=== PATIENT | male | born 1950 | race Caucasian/White ===

== ENCOUNTER 2019-09-03 05:53 | Day surgery (SDC) | payer MEDICARE, OTHER ==
[2019-09-02 15:01] LABS: BASOPHILS # (AUTO) 0.1 X10'3 (0-0.2); BASOPHILS % (AUTO) 0.8 % (0-1); EOSINOPHILS # (AUTO) 0.1 X10'3 (0-0.9); EOSINOPHILS % (AUTO) 2.2 % (0-6); HEMATOCRIT 46.4 % (42.0-52.0); HEMOGLOBIN 15.8 g/dl (14.0-17.9); LYMPHOCYTES % (AUTO) 29.5 % (21-51); MEAN CORPUSCULAR HEMOGLOBIN 32.1 PG (27.0-31.0); MEAN CORPUSCULAR VOLUME 94.4 FL (78-98); MEAN PLATELET VOLUME 7.6 FL (7.4-10.4); MONOCYTES # (AUTO) 0.8 X10'3 (0-0.9); MONOCYTES % (AUTO) 12.2 % (2-12); NEUTROPHILS # (AUTO) 3.8 X10'3 (1.8-7.7); NEUTROPHILS % (AUTO) 55.3 % (42-75); PLATELET COUNT 218 X10'3 (140-440); RED BLOOD COUNT 4.92 X10'6 (4.70-6.10); RED CELL DISTRIBUTION WIDTH 12.9 % (11.5-14.5); WHITE BLOOD COUNT 6.8 X10'3 (4.5-11.0)
[2019-09-02 15:09] LABS: ALBUMIN 4.1 G/DL (3.4-5.0); ANION GAP 8 (8-16); BLOOD UREA NITROGEN 16 MG/DL (7-18); BUN/CREATININE RATIO 12.9 (5.4-32.0); CALCIUM 9.7 MG/DL (8.5-10.1); CHLORIDE 105 MMOL/L (99-107); CREATININE 1.24 MG/DL (0.60-1.10); GLUCOSE 93 MG/DL (70-104); POTASSIUM 3.9 MMOL/L (3.5-5.1); SODIUM 145 MMOL/L (135-145); TOTAL CARBON DIOXIDE 32.2 MMOL/L (24-32); eGFR 58 ML/MIN
[2019-09-02 15:12] LABS: PARTIAL THROMBOPLASTIN TIME 27 SECONDS (22-32)
[2019-09-03] VITALS (14 sets, daily range): BP systolic 115–167; BP diastolic 68–83
[~2019-09-03] VITALS: Ht 172.7 cm; Wt 79.0 kg
[~2019-09-03 05:53] MED LIST: ASPI-1009 PO; ATOR10TA87 PO; CARV-50 PO; HYDR12.522 PO; ISOS30TA PO; LOSA25TA96 PO
[2019-09-03] MEDS ORDERED: LORazepam 0.5 MG tablet PO PRN (06:10)
[2019-09-03] MEDS ORDERED: diphenhydrAMINE 25mg capsule PO PRN (06:10)
[2019-09-03] MEDS ORDERED: normal saline 1,000 ML IV SCH (06:10)
[2019-09-03] MEDS ORDERED: EVOL140S2 (06:35)
[2019-09-03] MEDS ORDERED: METO50TA7 PO (06:35)
[2019-09-03] MEDS ORDERED: Vitamin D3 PO (06:35)
[2019-09-03] MEDS ORDERED: midazolam 2 mg/2 ml injection ONE (07:26)
[2019-09-03] MEDS ORDERED: iohexol 350MG/ML 100ml bottle IV ONE ×2 (07:26→08:40)
[2019-09-03] MEDS ORDERED: nitroGLYCERIN-Tridil 50MG/D5W 250 ML IV ONE (07:26)
[2019-09-03] MEDS ORDERED: LIDOcaine 1% (10mg/ml)w/preservative injection 20ml MDV ONE (07:26)
[2019-09-03] MEDS ORDERED: fentaNYL/PF 50MCG/1 ML 2ML syringe ONE (07:26)
[2019-09-03] MEDS ORDERED: iohexol 350 MG/ML 50ML vial IV ONE ×3 (07:26→09:01)
[2019-09-03] MEDS ORDERED: heparin 1,000unit/ml 10ml vial 10 ML ONE (07:56)
[2019-09-03] MEDS ORDERED: heparin 25,000 UNIT/250ml bag 250 ML IV ONE (08:39)
[2019-09-03] MEDS ORDERED: clopidogrel 300mg tablet ONE ×2 (09:05→09:14)
[2019-09-03] MEDS ORDERED: heparin 25,000 UNIT/250ml bag 250 ML IV SCH (09:58)
[2019-09-03] MEDS ORDERED: heparin 10,000 units/1 ML INJ IV ONE (10:00)
[2019-09-03] MEDS ORDERED: heparin 10,000 units/1 ML INJ IV PRN (10:00)
[2019-09-03] MEDS ORDERED: aspirin 81mg tab.chew PO SCH (10:05)
[2019-09-03] MEDS ORDERED: cyclobenzaprine 10mg tablet PO PRN (10:05)
[2019-09-03] MEDS ORDERED: proCHLORperazine 10 MG/2 ml inj IV PRN (10:05)
[2019-09-03] MEDS ORDERED: HYDROcodone/acetaminophen 10/325mg tab PO PRN ×2 (10:05)
[2019-09-03] MEDS ORDERED: acetaminophen 325mg tablet PO PRN (10:05)
[2019-09-03] MEDS ORDERED: OXAZEpam 15mg capsule PO PRN (10:05)
[2019-09-03] MEDS ORDERED: magnesium hydroxide 30ml (MOM) UD suspension PO PRN (10:05)
--- NOTE | 2019-09-03 15:40 | NUR ---
Problems reprioritized. Patient report given, questions answered & plan of care reviewed with Elena MICHELLE.
[2019-09-03] MEDS ORDERED: docusate sod 100mg capsule PO SCH (20:00)
[2019-09-04] MEDS ORDERED: clopidogrel 75mg tablet PO SCH (08:00)
== END 2019-09-03 18:50 | disposition home or self-care (01) ==
LOC: SSTAY O 05:53
PROVIDERS: ATTEND Internal Medicine Cardiovascular Disease
DX: R94.39 Abnormal result of other cardiovascular function study (principal); I25.10 Atherosclerotic heart disease of native coronary artery without angina pectoris; I10 Essential (primary) hypertension; I25.82 Chronic total occlusion of coronary artery; Z95.1 Presence of aortocoronary bypass graft; Z79.01 Long term (current) use of anticoagulants; Z79.82 Long term (current) use of aspirin; Z79.899 Other long term (current) drug therapy; Z72.89 Other problems related to lifestyle; Z88.2 Allergy status to sulfonamides
CPT/HCPCS: 36415; 80048; 85025; 85347; 85610; 85730; 93005; 93459; 99152; 99153; C1725; C1769; C1874; C9604; J1644; J2001; J2250; J3010; J7030; J7040; Q0163; Q9967; A4620; A5120; A6258; A6449; C1751; C1760; J3490

== ENCOUNTER 2021-08-25 06:01 | Day surgery (SDC) | payer MEDICARE, OTHER ==
[2021-08-25] VITALS (13 sets, daily range): BP systolic 114–155; BP diastolic 63–89
[~2021-08-25] VITALS: Ht 172.7 cm; Wt 80.9 kg
[~2021-08-25 06:01] MED LIST changes: -ATOR10TA87 PO; -CARV-50 PO; +EVOL140S2; -LOSA25TA96 PO; +METO50TA7 PO; +Vitamin D3 PO
[2021-08-25] MEDS ORDERED: ATOR20TA66 PO (07:06)
[2021-08-25] MEDS ORDERED: METO-539 PO (07:06)
[2021-08-25] MEDS ORDERED: CLOP75TA33 PO (07:06)
[2021-08-25] MEDS ORDERED: CHOL500050 PO (07:06)
[2021-08-25] MEDS ORDERED: HYDR25TA5 PO (07:06)
[2021-08-25] MEDS ORDERED: ISOS60TA71 PO (07:06)
[2021-08-25] MEDS ORDERED: nitroGLYCERIN-Tridil 50MG/D5W 250 ML IV ONE (07:18)
[2021-08-25] MEDS ORDERED: iohexol 300mg/ml 100ml inj. ONE ×4 (07:18→09:46)
[2021-08-25] MEDS ORDERED: heparin 1,000unit/ml 10ml vial 10 ML ONE (07:19)
[2021-08-25] MEDS ORDERED: verapamil 2.5 mg/ml inj IV ONE (07:19)
[2021-08-25] MEDS ORDERED: fentaNYL/PF 50MCG/1 ML 2ML syringe ONE (07:19)
[2021-08-25] MEDS ORDERED: midazolam 1 mg/ML 2ml injection ONE (07:19)
[2021-08-25] MEDS ORDERED: LORazepam 0.5 MG tablet PO PRN (07:20)
[2021-08-25] MEDS ORDERED: normal saline 1,000 ML IV SCH (07:20)
[2021-08-25] MEDS ORDERED: diphenhydrAMINE 25mg capsule PO PRN (07:20)
[2021-08-25 07:21] LABS: APTT 30 SECONDS (22-32)
[2021-08-25 07:22] LABS: BASOPHILS % (AUTO) 0.7 % (0-1); EOSINOPHILS # (AUTO) 0.1 X10'3 (0-0.9); EOSINOPHILS % (AUTO) 2.4 % (0-6); HEMATOCRIT 45.6 % (42.0-52.0); HEMOGLOBIN 15.7 g/dl (14.0-17.9); LYMPHOCYTES # (AUTO) 1.9 X10'3 (1.1-4.8); LYMPHOCYTES % (AUTO) 36.1 % (21-51); MEAN CORPUSCULAR HEMOGLOBIN 32.4 PG (27.0-31.0); MEAN CORPUSCULAR HGB CONC 34.5 g/dL (33.0-36.5); MEAN CORPUSCULAR VOLUME 93.8 FL (78-98); MEAN PLATELET VOLUME 7.4 FL (7.4-10.4); MONOCYTES # (AUTO) 0.7 X10'3 (0-0.9); NEUTROPHILS # (AUTO) 2.5 X10'3 (1.8-7.7); NEUTROPHILS % (AUTO) 46.8 % (42-75); PLATELET COUNT 224 X10'3 (140-440); RED BLOOD COUNT 4.86 X10'6 (4.70-6.10); RED CELL DISTRIBUTION WIDTH 14.2 % (11.5-14.5); WHITE BLOOD COUNT 5.2 X10'3 (4.5-11.0)
[2021-08-25] MEDS ORDERED: LIDOcaine 1% 30ml preserv. free vial ONE (07:23)
[2021-08-25 07:38] LABS: ALBUMIN 3.8 G/DL (3.4-5.0); ANION GAP 10 (8-16); BLOOD UREA NITROGEN 17 MG/DL (7-18); BUN/CREATININE RATIO 15.5 (5.4-32.0); CALCIUM 9.1 MG/DL (8.5-10.1); CHLORIDE 105 MMOL/L (99-107); GLUCOSE 112 MG/DL (70-104); SODIUM 140 MMOL/L (135-145); TOTAL CARBON DIOXIDE 25.5 MMOL/L (24-32); eGFR 66 ML/MIN
[2021-08-25] MEDS ORDERED: heparin 25,000 UNIT/250ml bag 250 ML IV ONE (08:57)
[2021-08-25] MEDS ORDERED: clopidogrel 300mg tablet ONE (09:49)
[2021-08-25] MEDS ORDERED: clopidogrel 75mg tablet PO SCH (11:01)
[2021-08-25] MEDS ORDERED: nitroGLYCERIN 0.4mg SUBLingual tab SL PRN (11:05)
== END 2021-08-25 17:00 | disposition home or self-care (01) ==
LOC: SSTAY O 06:01
PROVIDERS: ATTEND Internal Medicine Cardiovascular Disease
DX: I25.810 Atherosclerosis of coronary artery bypass graft(s) without angina pectoris (principal); I10 Essential (primary) hypertension; E78.49 Other hyperlipidemia; Z95.5 Presence of coronary angioplasty implant and graft; Z79.01 Long term (current) use of anticoagulants; Z79.899 Other long term (current) drug therapy; Z88.2 Allergy status to sulfonamides
CPT/HCPCS: 36415; 76937; 80048; 85025; 85347; 85610; 85730; 93005; 93459; 99152; 99153; C1725; C1751; C1769; C1874; C1894; C9604; J1644; J2250; J3010; J3490; Q0163; Q9967; A4620; A5120; A6258

== ENCOUNTER 2021-08-31 06:05 | Day surgery (SDC) | payer MEDICARE, OTHER ==
[2021-08-31] VITALS (12 sets, daily range): BP systolic 116–160; BP diastolic 59–90
[~2021-08-31] VITALS: Ht 172.7 cm; Wt 79.6 kg
[~2021-08-31 06:05] MED LIST changes: +ATOR20TA66 PO; +CHOL500050 PO; +CLOP75TA33 PO; -EVOL140S2; -HYDR12.522 PO; +HYDR25TA5 PO; -ISOS30TA PO; +ISOS60TA71 PO; +METO-539 PO; -METO50TA7 PO; -Vitamin D3 PO
[2021-08-31] MEDS ORDERED: normal saline 1,000 ML IV SCH (06:35)
[2021-08-31] MEDS ORDERED: diphenhydrAMINE 25mg capsule PO PRN (06:35)
[2021-08-31] MEDS ORDERED: LORazepam 0.5 MG tablet PO PRN (06:35)
[2021-08-31 07:40] LABS: BASOPHILS % (AUTO) 0.7 % (0-1); EOSINOPHILS # (AUTO) 0.1 X10'3 (0-0.9); EOSINOPHILS % (AUTO) 2.5 % (0-6); HEMATOCRIT 44.1 % (42.0-52.0); HEMOGLOBIN 15.4 g/dl (14.0-17.9); LYMPHOCYTES # (AUTO) 1.9 X10'3 (1.1-4.8); LYMPHOCYTES % (AUTO) 36.8 % (21-51); MEAN CORPUSCULAR HEMOGLOBIN 32.6 PG (27.0-31.0); MEAN CORPUSCULAR VOLUME 93.2 FL (78-98); MONOCYTES # (AUTO) 0.6 X10'3 (0-0.9); MONOCYTES % (AUTO) 11.9 % (2-12); NEUTROPHILS # (AUTO) 2.5 X10'3 (1.8-7.7); NEUTROPHILS % (AUTO) 48.1 % (42-75); PLATELET COUNT 218 X10'3 (140-440); RED BLOOD COUNT 4.74 X10'6 (4.70-6.10); RED CELL DISTRIBUTION WIDTH 13.9 % (11.5-14.5); WHITE BLOOD COUNT 5.2 X10'3 (4.5-11.0)
[2021-08-31 07:49] LABS: APTT 29 SECONDS (22-32)
[2021-08-31 08:31] LABS: ANION GAP 6 (8-16); BLOOD UREA NITROGEN 14 MG/DL (7-18); CALCIUM 9.3 MG/DL (8.5-10.1); CHLORIDE 105 MMOL/L (99-107); GLUCOSE 109 MG/DL (70-104); POTASSIUM 3.8 MMOL/L (3.5-5.1); SODIUM 139 MMOL/L (135-145); TOTAL CARBON DIOXIDE 27.8 MMOL/L (24-32); eGFR 74 ML/MIN
[2021-08-31] MEDS ORDERED: heparin 1,000unit/ml 10ml vial 10 ML ONE (10:46)
[2021-08-31] MEDS ORDERED: midazolam 1 mg/ML 2ml injection ONE (10:46)
[2021-08-31] MEDS ORDERED: verapamil 2.5 mg/ml inj IV ONE (10:46)
[2021-08-31] MEDS ORDERED: fentaNYL/PF 50MCG/1 ML 2ML syringe ONE (10:46)
[2021-08-31] MEDS ORDERED: LIDOcaine 1% 30ml preserv. free vial ONE (10:46)
[2021-08-31] MEDS ORDERED: IOHEXOL 350 MG/ML INFUS..BTL 125ML IV ONE (10:46)
[2021-08-31] MEDS ORDERED: heparin 25,000 UNIT/250ml bag 250 ML IV ONE (10:46)
[2021-08-31] MEDS ORDERED: nitroGLYCERIN-Tridil 50MG/D5W 250 ML IV ONE (10:46)
[2021-08-31] MEDS ORDERED: clopidogrel 300mg tablet ONE (11:59)
[2021-08-31] MEDS ORDERED: normal saline 1000ml 1,000 ML IV SCH (13:00)
--- NOTE | 2021-08-31 15:19 | NUR ---
Spoke with patient and , they have a current RX for Plavix at home. Pt states he has a full bottle of Plavix and understands dose instructions.
== END 2021-08-31 17:55 | disposition home or self-care (01) ==
LOC: SSTAY O 06:05
PROVIDERS: ATTEND Internal Medicine Cardiovascular Disease
DX: I25.810 Atherosclerosis of coronary artery bypass graft(s) without angina pectoris (principal); I10 Essential (primary) hypertension; E78.49 Other hyperlipidemia; Z79.899 Other long term (current) drug therapy; Z79.01 Long term (current) use of anticoagulants; Z88.2 Allergy status to sulfonamides
CPT/HCPCS: 36415; 76937; 80048; 85025; 85347; 85610; 85730; 93005; 99152; 99153; C1725; C1751; C1769; C1874; C1894; C9604; J1644; J2250; J3010; J3490; J7030; Q0163; Q9967; A4620; A5120; A6258; A6402

== ENCOUNTER 2022-10-11 09:05 | Day surgery (SDC) | payer MEDICARE, OTHER ==
[2022-10-10 10:19] LABS: BASOPHILS % (AUTO) 0.7 % (0-1); EOSINOPHILS # (AUTO) 0.1 X10'3 (0-0.9); EOSINOPHILS % (AUTO) 1.2 % (0-6); HEMATOCRIT 45.4 % (42.0-52.0); HEMOGLOBIN 15.3 g/dl (14.0-17.9); LYMPHOCYTES % (AUTO) 31.4 % (21-51); MEAN CORPUSCULAR HEMOGLOBIN 32.3 PG (27.0-31.0); MEAN CORPUSCULAR HGB CONC 33.8 g/dL (33.0-36.5); MEAN CORPUSCULAR VOLUME 95.7 FL (78-98); MEAN PLATELET VOLUME 7.8 FL (7.4-10.4); MONOCYTES # (AUTO) 0.9 X10'3 (0-0.9); MONOCYTES % (AUTO) 14.6 % (2-12); NEUTROPHILS # (AUTO) 3.3 X10'3 (1.8-7.7); NEUTROPHILS % (AUTO) 52.1 % (42-75); PLATELET COUNT 180 X10'3 (140-440); RED BLOOD COUNT 4.75 X10'6 (4.70-6.10); RED CELL DISTRIBUTION WIDTH 12.8 % (11.5-14.5); WHITE BLOOD COUNT 6.3 X10'3 (4.5-11.0)
[2022-10-10 10:28] LABS: APTT 28 SECONDS (22-32); PROTHROMBIN TIME 10.9 SECONDS (9.0-12.0)
[2022-10-10 10:31] LABS: ALBUMIN 3.8 G/DL (3.4-5.0); ANION GAP 7 (8-16); BLOOD UREA NITROGEN 14 MG/DL (7-18); BUN/CREATININE RATIO 15.1 (10.0-20.0); CALCIUM 9.2 MG/DL (8.5-10.1); CHLORIDE 104 MMOL/L (99-107); CREATININE 0.93 MG/DL (0.60-1.10); GLUCOSE 94 MG/DL (70-104); POTASSIUM 4.3 MMOL/L (3.5-5.1); SODIUM 139 MMOL/L (135-145); TOTAL CARBON DIOXIDE 28.2 MMOL/L (24-32); eGFR 80 ML/MIN
[~2022-10-11] VITALS: Ht 172.7 cm; Wt 78.4 kg
[2022-10-11] VITALS (13 sets, daily range): BP systolic 114–157; BP diastolic 52–83; PULSE 48–75; RESP 13–19; TEMP 97.9; O2SAT 91–98
[2022-10-11] MEDS ORDERED: normal saline 1,000 ML IV SCH (09:20)
[2022-10-11] MEDS ORDERED: LORazepam 0.5 MG tablet PO PRN (09:20)
[2022-10-11] MEDS ORDERED: diphenhydrAMINE 25mg capsule PO PRN (09:20)
[2022-10-11] MEDS ORDERED: ROSU40TA22 PO (10:39)
[2022-10-11] MEDS ORDERED: LIDOcaine 1% (10mg/ml) 2ml vial ONE (10:52)
[2022-10-11] MEDS ORDERED: nitroGLYCERIN-Tridil 50MG/D5W 250 ML IV ONE (10:52)
[2022-10-11] MEDS ORDERED: verapamil 2.5 mg/ml inj IV ONE (10:52)
[2022-10-11] MEDS ORDERED: iohexol 350MG/ML 100ml bottle IV ONE ×2 (10:53→12:11)
[2022-10-11] MEDS ORDERED: midazolam 1 mg/ML 2ml injection ONE (10:53)
[2022-10-11] MEDS ORDERED: fentaNYL/PF 50MCG/1 ML 2ML syringe ONE (10:53)
[2022-10-11] MEDS ORDERED: heparin 1,000unit/ml 10ml vial 10 ML ONE (10:53)
[2022-10-11] MEDS ORDERED: iohexol 350 MG/ML 50ML vial IV ONE (10:53)
[2022-10-11] MEDS ORDERED: heparin 25,000 UNIT/250ml bag 250 ML IV ONE (11:59)
[2022-10-11] MEDS ORDERED: atropine 0.1mg/ml 10ml syringe ONE (12:18)
[2022-10-11] MEDS ORDERED: clopidogrel 300mg tablet ONE (12:50)
[2022-10-11] MEDS ORDERED: normal saline 1000ml 1,000 ML IV SCH (13:30)
[2022-10-12] MEDS ORDERED: clopidogrel 75mg tablet PO SCH (08:00)
[2022-10-12] MEDS ORDERED: ticagrelor 90mg tablet PO SCH (08:00)
== END 2022-10-11 18:50 | disposition home or self-care (01) ==
LOC: SSTAY O 09:05
PROVIDERS: ATTEND Internal Medicine Cardiovascular Disease
DX: T82.855A Stenosis of coronary artery stent, initial encounter (principal); I25.810 Atherosclerosis of coronary artery bypass graft(s) without angina pectoris; E78.5 Hyperlipidemia, unspecified; I10 Essential (primary) hypertension; Z79.82 Long term (current) use of aspirin; Z79.899 Other long term (current) drug therapy; Z79.01 Long term (current) use of anticoagulants; Z72.89 Other problems related to lifestyle; Z88.2 Allergy status to sulfonamides; Y83.8 Other surgical procedures as the cause of abnormal reaction of the patient, or of later complication, without mention of misadventure at the time of the procedure; Y92.89 Other specified places as the place of occurrence of the external cause
CPT/HCPCS: 36415; 76937; 80048; 85025; 85347; 85610; 85730; 92920; 93005; 93459; 99152; 99153; A6258; C1725; C1751; C1769; C1894; C9607; J1644; J2250; J3010; J3490; J7030; Q0163; Q9967; 92943; 93458; A6402; C9608; J0461

== ENCOUNTER 2023-04-19 08:22 | Outpatient (CLI) | payer MEDICARE, OTHER ==
[~2023-04-19] VITALS: Ht 172.7 cm; Wt 75.0 kg
[~2023-04-19 08:22] MED LIST changes: -ATOR20TA66 PO; +ROSU40TA22 PO
[2023-04-19] MEDS ORDERED: aminophylline 250mg/10ml inj. IV PRN (09:10)
[2023-04-19] MEDS ORDERED: regadenoson 0.4mg/5ml syringe IV ONE (09:10)
[2023-04-19] MEDS ORDERED: normal saline 500ml IV soln 500 ML IV ONE (09:10)
[2023-04-19] MEDS ORDERED: nitroGLYCERIN 0.4mg SUBLingual tab SL PRN (09:10)
[2023-04-19 10:27] VITALS: BP 164/79; PULSE 51; RESP 18; O2SAT 100
[2023-04-19 10:44] VITALS: BP 176/74; PULSE 79; RESP 18; O2SAT 100
[2023-04-19 10:45] VITALS: BP 156/96; PULSE 80; RESP 18; O2SAT 96
[2023-04-19 10:46] VITALS: BP 153/63; PULSE 61; RESP 18; O2SAT 96
[2023-04-19 10:47] VITALS: BP 145/61; PULSE 66; RESP 18; O2SAT 96
[2023-04-19 10:48] VITALS: BP 147/72; PULSE 74; RESP 18; O2SAT 96
== END 2023-04-19 23:59 | disposition home or self-care (01) ==
LOC: RAD 08:22
PROVIDERS: ATTEND Internal Medicine Cardiovascular Disease
DX: I25.10 Atherosclerotic heart disease of native coronary artery without angina pectoris (principal)
CPT/HCPCS: 78452; 93017; A9500; J2785; J7040

== ENCOUNTER 2024-05-28 05:45 | Day surgery (SDC) | payer MEDICARE, OTHER ==
[2024-05-27 14:16] LABS: BASOPHILS % (AUTO) 0.6 % (0-1); EOSINOPHILS # (AUTO) 0.1 X10'3 (0-0.9); EOSINOPHILS % (AUTO) 1.9 % (0-6); HEMOGLOBIN 15.5 g/dl (14.0-17.9); LYMPHOCYTES # (AUTO) 1.9 X10'3 (1.1-4.8); LYMPHOCYTES % (AUTO) 29.1 % (21-51); MEAN CORPUSCULAR HEMOGLOBIN 32.9 PG (27.0-31.0); MEAN CORPUSCULAR HGB CONC 34.4 g/dL (33.0-36.5); MEAN CORPUSCULAR VOLUME 95.8 FL (78-98); MEAN PLATELET VOLUME 7.6 FL (7.4-10.4); MONOCYTES # (AUTO) 0.8 X10'3 (0-0.9); MONOCYTES % (AUTO) 12.6 % (2-12); NEUTROPHILS # (AUTO) 3.6 X10'3 (1.8-7.7); NEUTROPHILS % (AUTO) 55.8 % (42-75); PLATELET COUNT 211 X10'3 (140-440); RED CELL DISTRIBUTION WIDTH 13.3 % (11.5-14.5); WHITE BLOOD COUNT 6.4 X10'3 (4.5-11.0)
[2024-05-27 14:27] LABS: APTT 26 SECONDS (22-32); INR 1.1 INR
[2024-05-27 14:28] LABS: ALBUMIN 3.8 G/DL (3.4-5.0); ANION GAP 8 (8-16); BLOOD UREA NITROGEN 19 MG/DL (7-18); BUN/CREATININE RATIO 16.8 (10.0-20.0); CALCIUM 9.2 MG/DL (8.5-10.1); CHLORIDE 104 MMOL/L (99-107); CREATININE 1.13 MG/DL (0.60-1.10); GLUCOSE 123 MG/DL (70-104); POTASSIUM 4.1 MMOL/L (3.5-5.1); SODIUM 139 MMOL/L (135-145); TOTAL CARBON DIOXIDE 27.2 MMOL/L (24-32); eGFR 64 ML/MIN
[2024-05-27 14:29] LABS: PROTHROMBIN TIME 11.2 SECONDS (9.0-12.0)
[~2024-05-28] VITALS: Ht 172.7 cm; Wt 74.8 kg
[2024-05-28] VITALS (13 sets, daily range): BP systolic 125–163; BP diastolic 48–77; PULSE 47–69; RESP 11–15; O2SAT 95–98
[~2024-05-28 05:45] MED LIST changes: -ROSU40TA22 PO; +ROSU40TA89 PO
[2024-05-28] MEDS ORDERED: ASPI-1397 PO (06:23)
[2024-05-28] MEDS: diphenhydrAMINE 25mg capsule PO PRN (06:59)
[2024-05-28] MEDS: normal saline 1,000 ML IV SCH (06:59)
[2024-05-28] MEDS: LORazepam 0.5 MG tablet PO PRN (06:59)
[2024-05-28] MEDS ORDERED: LIDOcaine 1% (10mg/ml) 2ml vial ONE (07:37)
[2024-05-28] MEDS ORDERED: verapamil 2.5 mg/ml inj IV ONE (07:37)
[2024-05-28] MEDS ORDERED: midazolam 1 mg/ML 2ml injection ONE (07:37)
[2024-05-28] MEDS ORDERED: fentaNYL/PF 50MCG/1 ML 2ML syringe ONE (07:37)
[2024-05-28] MEDS ORDERED: iohexol 350MG/ML 100ml bottle IV ONE ×2 (07:37→09:13)
[2024-05-28] MEDS ORDERED: heparin 1,000unit/ml 10ml vial 10 ML ONE (07:37)
[2024-05-28] MEDS ORDERED: iohexol 350 MG/ML 50ML vial IV ONE (07:37)
[2024-05-28] MEDS ORDERED: nitroGLYCERIN 500mcg/5mL D5W 10 ML IV ONE (07:39)
[2024-05-28] MEDS ORDERED: heparin 25,000 UNIT/250ml bag 250 ML IV ONE (09:23)
[2024-05-28] MEDS ORDERED: clopidogrel 300mg tablet ONE (09:47)
[2024-05-28] MEDS ORDERED: aspirin 325mg tablet ONE (09:51)
[2024-05-28] MEDS ORDERED: proCHLORperazine 10 MG/2 ml inj IV PRN (11:15)
[2024-05-28] MEDS ORDERED: ondansetron/PF 4mg/2ml inj IV PRN (11:15)
[2024-05-28] MEDS ORDERED: normal saline 1000ml 1,000 ML IV SCH (11:15)
[2024-05-28] MEDS ORDERED: HYDROcodone/acetaminophen 10/325mg tab PO PRN (11:15)
[2024-05-28] MEDS ORDERED: HYDROcodone/acetaminophen 5mg/325mg tablet PO PRN (11:15)
[2024-05-28] MEDS ORDERED: ROSU40TA PO (11:28)
[2024-05-28] MEDS ORDERED: CLOP75TA34 PO (11:28)
[2024-05-28] MEDS ORDERED: ASPI81TA52 PO (11:28)
[2024-05-28 13:45] LABS: ISTAT HGB ART 14.6 g/dl (14.0-17.9); ISTAT Hct ART 43 %PCV (42-52); ISTAT O2 SATURATION ARTERIAL 94 % (95-98); ISTAT SOURCE ART
[2024-05-28 15:30] LABS: ISTAT HGB MIX 14.6 g/dl (14.0-17.9); ISTAT Hct MIX 43 %PCV (42-52); ISTAT O2 SATURATION MIX VENOUS 71 % (60-80); ISTAT SOURCE VEN
== END 2024-05-28 18:00 | disposition home or self-care (01) ==
LOC: SSTAY O 05:45
PROVIDERS: ATTEND Internal Medicine Cardiovascular Disease
DX: I25.810 Atherosclerosis of coronary artery bypass graft(s) without angina pectoris (principal); I10 Essential (primary) hypertension; E78.5 Hyperlipidemia, unspecified; Z79.01 Long term (current) use of anticoagulants; I42.0 Dilated cardiomyopathy; Z88.2 Allergy status to sulfonamides; Z95.5 Presence of coronary angioplasty implant and graft
CPT/HCPCS: 36415; 80048; 82803; 85014; 85025; 85347; 85610; 85730; 93005; 93461; 99152; 99153; A6258; A6402; C1725; C1751; C1769; C1874; C1887; C1894; C9604; J1644; J2003; J2250; J3010; J3490; J7030; Q0163; Q9967; Z7610; 76937; 93460; A6449

== ENCOUNTER 2024-08-06 06:03 | Day surgery (SDC) | payer MEDICARE, OTHER ==
[~2024-08-06] VITALS: Ht 172.7 cm; Wt 74.4 kg
[2024-08-06] VITALS (10 sets, daily range): BP systolic 100–154; BP diastolic 51–82; PULSE 60–72; RESP 12–16; TEMP 98.2; O2SAT 94–99
[~2024-08-06 06:03] MED LIST changes: -ASPI-1009 PO; +ASPI-1397 PO; +ASPI81TA52 PO; +CLOP75TA34 PO; +ROSU40TA PO; +ceFAZolin 2gm in dextrose, iso 50 ML IV ONE
--- NOTE | 2024-08-06 06:56 | ELECTROCARDIOGRAPH REPORT ---
[facility] Test Date: 2024-08-06 Test Time: 06:53:23 Pat Name: COLUMBA AYERS Department: [facility] Patient ID: [facility]-[id number] Room: Gender: M [employer]: YASMIN : 1950 Requested By: JOMAR CAMPBELL Order Number: [id number] Reading MD: Dr. Juan Saravia Measurements Intervals [place] Rate: 59 P: 79 WV: 244 QRS: 29 QRSD: 127 T: 2 QT: 439 QTc: 435 Interpretive Statements Sinus arrhythmia Prolonged WV interval Nonspecific intraventricular conduction delay Borderline T abnormalities, inferior leads Electronically Signed On 08-06-2024 8:52:[address] Juan Saravia Please click the below link to view image of tracing.
[2024-08-06 07:14] LABS: BASOPHILS % (AUTO) 0.8 % (0-1); EOSINOPHILS # (AUTO) 0.2 X10'3 (0-0.9); EOSINOPHILS % (AUTO) 3.3 % (0-6); HEMATOCRIT 43.6 % (42.0-52.0); HEMOGLOBIN 15.1 g/dl (14.0-17.9); LYMPHOCYTES # (AUTO) 1.7 X10'3 (1.1-4.8); LYMPHOCYTES % (AUTO) 30.8 % (21-51); MEAN CORPUSCULAR HEMOGLOBIN 32.6 PG (27.0-31.0); MEAN CORPUSCULAR HGB CONC 34.7 g/dL (33.0-36.5); MEAN CORPUSCULAR VOLUME 93.8 FL (78-98); MEAN PLATELET VOLUME 7.4 FL (7.4-10.4); MONOCYTES # (AUTO) 0.7 X10'3 (0-0.9); MONOCYTES % (AUTO) 11.9 % (2-12); NEUTROPHILS % (AUTO) 53.2 % (42-75); PLATELET COUNT 188 X10'3 (140-440); RED BLOOD COUNT 4.64 X10'6 (4.70-6.10); RED CELL DISTRIBUTION WIDTH 13.1 % (11.5-14.5); WHITE BLOOD COUNT 5.6 X10'3 (4.5-11.0)
[2024-08-06] MEDS ORDERED: SPIR25TA5 PO (07:17)
[2024-08-06] MEDS ORDERED: SACU1TAB PO (07:17)
[2024-08-06] MEDS ORDERED: ASPI-920 PO (07:22)
[2024-08-06] MEDS ORDERED: LIDOcaine 1% W/epiNEPHrine 1:100,000 20ml vial ONE (07:23)
[2024-08-06] MEDS ORDERED: fentaNYL/PF 50MCG/1 ML 2ML syringe ONE (07:23)
[2024-08-06] MEDS ORDERED: ceFAZolin 1000mg inj ONE (07:24)
[2024-08-06] MEDS ORDERED: midazolam 1 mg/ML 2ml injection ONE (07:24)
[2024-08-06 07:27] LABS: ALBUMIN 3.8 G/DL (3.4-5.0); ANION GAP 10 (8-16); BLOOD UREA NITROGEN 12 MG/DL (7-18); BUN/CREATININE RATIO 12.6 (10.0-20.0); CALCIUM 8.8 MG/DL (8.5-10.1); CHLORIDE 108 MMOL/L (99-107); CREATININE 0.95 MG/DL (0.60-1.10); GLUCOSE 110 MG/DL (70-104); POTASSIUM 4.2 MMOL/L (3.5-5.1); SODIUM 143 MMOL/L (135-145); eCRCL 68 ML/MIN; eGFR 78 ML/MIN
[2024-08-06 07:28] LABS: APTT 27 SECONDS (22-32); PROTHROMBIN TIME 10.6 SECONDS (9.0-12.0)
[2024-08-06] MEDS: normal saline 1000ml 1,000 ML IV SCH (07:29)
[2024-08-06] MEDS ORDERED: iohexol 350 MG/ML 50ML vial IV ONE (08:37)
[2024-08-06] MEDS ORDERED: diphenhydrAMINE 50 mg/ml inj ONE (08:43)
[2024-08-06] MEDS ORDERED: HYDROcodone/acetaminophen 10/325mg tab PO PRN (10:30)
[2024-08-06] MEDS ORDERED: HYDROcodone/acetaminophen 5mg/325mg tablet PO PRN (10:30)
[2024-08-06] MEDS ORDERED: CEPH-585 PO (10:52)
[2024-08-06] MEDS: vancomycin/NS 1 GM ADD-VANTAGE 250 ML X 1 DOSE IV ONE (11:26)
--- NOTE | 2024-08-06 11:33 | RADIOLOGY REPORT ---
EXAM: DI CHEST,TWO VIEWS HISTORY: s/p pacemaker COMPARISON: None TECHNIQUE: Frontal and lateral views of the chest were performed. FINDINGS: No pneumothorax, pulmonary edema, pleural effusions, or consolidative infiltrates. The lungs are hype rexpanded with flattening of the diaphragm on the lateral film. The heart is not enlarged. There are postoperative changes of median sternotomy and left chest pacemaker. No fractures are identified abou t the bony thorax. There is mild thoracic degenerative disc disease. IMPRESSION: 1. Pulmonary hyperexpansion without evidence of acute intrathoracic process. 2. Postoperative changes of median sternotomy and left chest pacemaker.
--- NOTE | 2024-08-06 22:40 | CARDIOLOGY REPORT ---
DATE OF SERVICE: 08/06/2024 DICTATING PHYSICIAN: ELLEN Navarro MD PERMANENT PACEMAKER IMPLANTATION REPORT GENDER: Male. AGE: 73. HEIGHT: 172 cm. WEIGHT: 75 Kg. BODY SURFACE AREA: 1.88 m2. PRIMARY PHYSICIAN: Abigail Del Real MD in [facility]. CORE MACHINE OPERATOR: ELLEN Navarro MD INDICATION: The patient is a 73-year-old male with a history of hypertension, hyperlipidemia, CAD, CABG, subsequent stenting, cardiomyopathy with sick sinus syndrome. The patient had CABG x 6 in 12/2001 and he had multiple coronary interventions both here and also in [facility]. The patient has been having episodes of symptomatic bradycardia, the heart rate in the 40s, and he had an event monitor recently, which also showed symptomatic episodes of bradycardia and EKG also has first-degree AV block with incomplete left bundle branch block. After discussing risks, benefits, and alternative options, the patient prefers to proceed with permanent pacemaker implantation. His echo from 08/05/2024, ejection fraction of 45%. Risks, benefits, alternative options discussed. Informed consent obtained. PREPROCEDURE DIAGNOSIS: Sick sinus syndrome with symptomatic bradycardia. POSTPROCEDURE DIAGNOSIS: Sick sinus syndrome with symptomatic bradycardia. PROCEDURES DONE: * Fluoroscopy. * AV sequential pacemaker implantation. * Conscious sedation time of 90 minutes. BLOOD LOSS: Less than 5 mL. SURGEON: ELLEN Navarro MD, [facility]ELOPMENT SPECIALIST SURGEON: None. ANESTHESIOLOGIST: None. ANESTHESIA: Local anesthesia with conscious sedation. COMPLICATIONS: None. DESCRIPTION OF PROCEDURE: Left infraclavicular area was prepped and draped in the usual fashion. Two separate accesses were obtained in the left subclavian vein using percutaneous Seldinger technique with micropuncture wires. Micropuncture wires were replaced with three J-wires. A horizontal incision was placed in the left infraclavicular area. Using blunt dissection and electrocautery, prepectoral subcutaneous pacemaker pocket was fashioned. External ends of J-wires were retrieved into the pacemaker pocket. Two 7-Beninese sheaths were advanced over them. Through one of them, RV lead advanced to the RV apex, screwed into the RV apex. Appropriate pacing and sensing thresholds obtained. Sheath was removed by peel-away technique and lead anchored to the subcutaneous tissue with Ethibond. Through the second 7-Beninese sheath, right atrial lead was advanced to the right atrium. J-wire was formed, screwed into the right atrial appendage. Appropriate pacing and sensing thresholds obtained. Sheath removed by peel-away technique and lead anchored to subcutaneous tissue with Ethibond. Pocket was irrigated with copious amount of antibiotic solution. Leads connected to the appropriate sockets of the pulse generator. Set screws were tightened. Tug test performed. Pacemaker was suspended in the pacemaker pocket. Pocket closed with continuous 0 Vicryl followed by interrupted 0 Vicryl, third layer of interrupted 2-0 Vicryl applied. Skin approximated with bill. Pressure dressing applied. The patient tolerated the procedure well with no complications. TECHNICAL INFORMATION: Device used Medtronic MRI-compatible [place] pacemaker, model #W3DR01, serial #[id number], [employer] on 08/06/2024. RIGHT ATRIAL LEAD: Model #4076, 52 cm long, serial #[id number], [employer], 08/06/2024, right atrial appendage, P-wave amplitude of 0.7 millivolts, 532 ohms of impedance. Pacing threshold of 0.5 volts at 0.4 milliseconds. RV LEAD: Model #5076, 58 cm long, serial #[id number], [employer], 08/06/2024, RV apex, R-wave amplitude of 5, 532 ohms of impedance. Pacing threshold 0.5 volts at 0.4 milliseconds. IMPRESSION: A 73-year-old male with sick sinus syndrome with symptomatic bradycardia, underwent successful AV sequential pacemaker implanted with no complications. ELLEN Navarro MD TID: [id number] RECEIPT: [id number] BC/SUB/AMI cc: Abigail Del Real MD
== END 2024-08-06 14:00 | disposition home or self-care (01) ==
LOC: SSTAY O 06:03
PROVIDERS: ATTEND Internal Medicine Cardiovascular Disease
DX: I49.5 Sick sinus syndrome (principal); R00.1 Bradycardia, unspecified; Z79.01 Long term (current) use of anticoagulants; I25.10 Atherosclerotic heart disease of native coronary artery without angina pectoris; I10 Essential (primary) hypertension; E78.5 Hyperlipidemia, unspecified; Z79.82 Long term (current) use of aspirin; Z98.890 Other specified postprocedural states; Z88.2 Allergy status to sulfonamides; I42.0 Dilated cardiomyopathy; Z95.5 Presence of coronary angioplasty implant and graft
CPT/HCPCS: 33208; 36415; 71046; 80048; 85025; 85610; 85730; 93005; 99152; 99153; A6258; A6402; C1785; C1898; J0690; J1200; J2250; J3010; J3370; J3490; J7030; Q9967; Z7610; A6449